=== PATIENT | female | born 1965 | race Two or more races ===

== ENCOUNTER 2020-02-21 21:10 | Emergency (ER) | payer OTHER ==
[~2020-02-21] VITALS: Ht 165.1 cm; Wt 63.0 kg
[2020-02-21] MEDS ORDERED: ACETAMINOPHEN 325MG TABLET PO STA (21:37)
[2020-02-21 22:01] VITALS: BP 166/119
[2020-02-21 22:08] LABS: HEMATOCRIT. 45.3 % (36.0-48.0); HEMOGLOBIN. 15.4 g/dL (12.0-16.0); MEAN CORPUSCULAR HEMOGLOBIN 30.3 pg (28.0-32.0); MEAN CORPUSCULAR VOLUME 89.5 fL (81.0-99.0); MEAN PLATELET VOLUME 8.4 fl (7.4-10.4); MONOCYTES % 5.1 % (2.0-8.0); NEUTROPHILS % 59.9 % (40.0-76.0); PLATELET 220 x1000/uL (130-400); RED BLOOD CELL COUNT 5.07 mill/uL (4.2-5.4)
[2020-02-21 22:14] LABS: CHLORIDE 111 mEq/L (98-107)
== END 2020-02-21 22:50 | disposition home or self-care (01) ==
LOC: ER 21:10
DX: R51 Headache (principal); Z98.890 Other specified postprocedural states
CPT/HCPCS: 36415; 80053; 85025; 93005; 99285